=== PATIENT | female | born 1960 | race Caucasian/White ===

== ENCOUNTER 2023-09-03 07:58 | Emergency (ER) | payer OTHER, SELFPAY ==
[2023-09-03 08:00] VITALS: BP 156/83
--- NOTE | 2023-09-03 08:21 | ED.GENMED ---
History of Present Illness
General
Chief Complaint: Skin Problem
Source: patient
Exam Limitations: none
Time Seen by Provider: 09/03/23 08:15
Travel History
Have you had any contact with someone who has COVID-19?: No
Do you have any symptoms of coronavirus? Fever > 100 degrees, chills, cough, shortness of breath, sore throat, loss of taste or smell, muscle aches, or headache?: No
History of Present Illness
History of Present Illness:
62-year-old female complaining of bilateral leg pain swelling and rash for months. She last saw her physician 4 months ago. When asked why she has not followed up she stated 'he did not do anything for '. She denies fever chills shortness of
breath or chest pain. Mostly complaining of the painful rash leg swelling tightness in her lower extremities. Also complaining of bilateral knee pain.
Past History
Past History
ED Past Medical History: HTN, Psychiatric (anxiety) and Other (gout)
ED Past Surgical History: Gynecological, Orthopedic and Other (Multiple eye surgeries)
Social History
Tobacco: Non-smoker
Alcohol: None
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
Review of Systems
Review of Systems
All Other Systems: Not applicable
Constitutional: Denies fever
Respiratory: Reports no symptoms
Cardiac: Reports no symptoms
Phy Exam
Physical Exam
Physical Exam:
GENERAL: Alert and oriented in no apparent distress. Able to bear weight and ambulate fully to the bed
CARDIAC: Regular rate and rhythm without any obvious murmurs.
LUNGS: Clear breath sounds,normal
ABDOMEN: Soft, without focal tenderness or distention. Elevated BMI
NEUROLOGICAL: Alert and oriented , grossly non-focal
SKIN: Warm and dry, chronic erythematous changes to both lower extremities. Questionable very minimal surrounding cellulitis bilaterally.
MUSCULOSKELETAL: Relatively tight lower extremities with mild pitting. Good distal pulses and color. No cord. No obvious knee effusions. No ankle effusions
PSYCH: Normal and appropriate interaction.
Course
Orders/Labs/Results
Orders:
Orders
09/03/23 08:20
IV Insert/Care/Rem.- Treatment PRN
US Periph Venous LOWER Ext Patrick Urgent
Comment:
Reason For Exam: Bilateral leg swelling
09/03/23 08:21
CR Chest - 2 Views Urgent
Comment:
Reason For Exam: Bilateral leg swelling
09/03/23 10:02
Basic Metabolic Panel Urgent
Complete Blood Count/With Diff Urgent
NT-proBNP Urgent
09/03/23 12:27
Amlodipine [Norvasc] 5 mg PO NOW STA
Doxycycline [Vibramycin] 100 mg PO NOW STA
Abnormal Lab Results
09/03/23
10:02
RBC 4.12 L 10^6/uL
(4.20-5.40)
MCHC 31.6 L g/dL
(33.0-37.0)
BUN 26 H mg/dl
(7-17)
Creatinine 1.5 H mg/dL
(0.6-1.0)
Calcium 11.5 H mg/dl
(8.4-10.2)
09/03/23 10:02
09/03/23 10:02
Vital Signs
Initial and Last Documented VS:
Initial Vital Signs
Temp Pulse Resp BP Pulse Ox
98.3 F 60 16 156/83 95
09/03/23 08:00 09/03/23 08:00 09/03/23 08:00 09/03/23 08:00 09/03/23 08:00
Last Documented Vital Signs
Temp Pulse Resp BP Pulse Ox
98.3 F 69 20 185/78 98
09/03/23 08:00 09/03/23 11:08 09/03/23 11:08 09/03/23 11:08 09/03/23 11:08
MDM/Problems Addressed
Differential Diagnosis Includes:
Differential for ongoing leg swelling bilaterally and some erythema would be chronic edema, kidney disease, bilateral DVT. Unlikely. Chronic venous issues. Doubt CHF. As for the rash. Most of this is a chronic dermatitis. However consider mild
secondary cellulitis
*Radiology
Radiology exam reviewed: radiology read reviewed (Negative ultrasound. Negative chest x-ray.)
*Pulse Oximetry
Patient hypoxic: no
*Critical Care Note
Total Time (30-74mins, 75-104mins- exclusive of procedures): Not Applicable
Data Reviewed
Review of Other/Old Records Reveals: Labs, Records and Testing
Update Note
Update Note:
No serious issues found. Possible cellulitis. Will cover with antibiotics. Patient requesting her blood pressure medication
ED Attending Note
-
Portions of this chart may have been created with voice recognition software.� Occasional wrong word or��sound alike� substitutions may have occurred due to the inherent limitations of voice recognition software.
Discharge Plan
Departure
Patient Disposition: Home (Routine Discharge)
Date of Disposition: 09/03/23
Time of Disposition: 12:29
Patient with high blood pressure during this ER visit?: Yes
Discharge Problem:
Bilateral lower extremity dermatitis, Bilateral lower extremity edema, Possible cellulitis, Mild renal insufficiency
Instructions: Skin Rash (DC), Cellulitis (Skin Infection), Adult (DC), BLOOD PRESSURE
Prescriptions:
New
doxycycline hyclate 100 mg capsule
100 mg PO BID 10 Days Qty: 20 0RF
No Action
Methadone
177 mg PO DAILY
doxycycline hyclate 100 MG capsule
100 mg PO Q12 7 Days Qty: 14 0RF
lidocaine [Aspercreme (lidocaine)] 1 PATCH adhesive patch,medicated
1 patch topical DAILY Qty: 30 0RF
cyanocobalamin (vitamin B-12) 1,000 MCG tablet
1,000 mcg PO DAILY Qty: 30 0RF
amlodipine 5 MG tablet
5 mg PO DAILY Qty: 30 0RF
amoxicillin-pot clavulanate 1 TABLET tablet
1 tab PO Q12 7 Days Qty: 14 0RF
cholecalciferol (vitamin D3) 2,000 UNIT tablet
2,000 unit PO DAILY Qty: 30 0RF
Referrals:
Brandyn Sharma DO [Family Provider] - Follow up in 2-3 days
Activity Restrictions/Additional Instructions:
Follow-up with kidney function with your primary physician. I would only take Tylenol for pain. Do not take Advil Motrin or Aleve
Interventions
Interventions:
*Risk Screen - Suicide Last Done: 09/03/23 08:02
*General Assessment Last Done: 09/03/23 08:43
*Neglect/Abuse Screening Last Done: 09/03/23 08:43
ED- Fall Risk Assessment Last Done: 09/03/23 08:45
*ED COVID-19 Vaccine History Last Done: 09/03/23 08:02
Discharge Date and Time
Print Language: LIBYAN
[2023-09-03 08:42] VITALS: BMI 39.2
[2023-09-03 11:08] VITALS: BP 185/78
[2023-09-03 11:17] LABS: % Basophils 0.3 % (0-2); % Eosinophils 3.9 % (0-6); % Immature Granulocytes 0.3 % (0-0.5); % Lymphocytes 29.7 % (20.5-51.1); % Monocytes 9.1 % (1.7-9.3); % Neutrophils 56.7 % (42.2-75.2); Absolute Eosinophils 0.3 10^3/uL (0-0.7); Absolute Monocytes 0.6 10^3/uL (0.1-0.6); Absolute Neutrophils 3.8 10^3/uL (1.4-6.5); Mean Corp Hgb Conc. 31.6 g/dL (33.0-37.0); Mean Corpuscular Hgb 29.1 pg (27.0-31.0); Mean Corpuscular Volume 92.2 fL (81.0-99.0); Mean Platelet Volume 10.2 fL (7.4-10.4); Nucleated Red Blood Cells % 0 %; Platelet Count 157 10^3/uL (130-400); Red Blood Cell Count 4.12 10^6/uL (4.20-5.40); Red Cell Dist. Width 12.6 % (11.5-14.5); White Blood Cell Count 6.7 10^3/uL (4.8-10.8)
[2023-09-03 11:45] LABS: Blood Urea Nitrogen 26 mg/dl (7-17); Estimated Creatinine Clearance 41 ml/min; Glucose 97 mg/dl (70-99); eGFR 38.67
[2023-09-03 11:46] LABS: Calcium 11.5 mg/dl (8.4-10.2); Carbon Dioxide 30 mmol/L (22-30); Chloride 104 mmol/L (98-107); NT-proBNP 377 pg/ml; Potassium 4.3 mmol/L (3.5-5.1); Sodium 137 mmol/L (135-145)
[2023-09-03] MEDS: VIBRAMYCIN 100 MG PO (12:36)
[2023-09-03] MEDS: NORVASC 5 MG PO (12:36)
[2023-09-03] MEDS: TYLENOL 650 MG PO (12:38)
[2023-09-03 13:54] VITALS: BP 150/72
== END 2023-09-03 13:57 | disposition home or self-care (01) ==
LOC: EMR 07:58
PROVIDERS: EMERGENCY PHYSICIAN Emergency Medicine; FAMILY PHYSICIAN Family Medicine
DX: L30.9 Dermatitis, unspecified (principal); R22.43 Localized swelling, mass and lump, lower limb, bilateral; I10 Essential (primary) hypertension
CPT/HCPCS: 99285; 71046; 80048; 83880; 85025; 93970

== ENCOUNTER → 2023-12-08 12:51 | Outpatient (REF) | payer OTHER, SELFPAY | LOC: WOUND 12:51 | PROVIDERS: ATTENDING PHYSICIAN Surgery; FAMILY PHYSICIAN Family Medicine | DX: I87.2 Venous insufficiency (chronic) (peripheral) (principal); N18.30 Chronic kidney disease, stage 3 unspecified; I12.9 Hypertensive chronic kidney disease with stage 1 through stage 4 chronic kidney disease, or unspecified chronic kidney disease | CPT/HCPCS: 99203 ==

== ENCOUNTER → 2023-12-25 13:49 | Outpatient (REF) | payer OTHER, SELFPAY | LOC: HWRAD 13:49 | PROVIDERS: ATTENDING PHYSICIAN Internal Medicine; FAMILY PHYSICIAN Family Medicine | DX: R79.89 Other specified abnormal findings of blood chemistry (principal) | CPT/HCPCS: 76770 ==

== ENCOUNTER → 2024-02-02 15:40 | Outpatient (REF) | payer OTHER, SELFPAY | LOC: HWWDC 15:40 | PROVIDERS: ATTENDING PHYSICIAN Physician Assistant | DX: Z12.31 Encounter for screening mammogram for malignant neoplasm of breast (principal) | CPT/HCPCS: 77063; 77067 ==

== ENCOUNTER 2024-06-27 12:33 | Emergency (ER) | payer OTHER, SELFPAY ==
[2024-06-27 12:35] VITALS: BP 172/94
--- NOTE | 2024-06-27 15:51 | EDRN ---
Kael RALPH in room w/ pt.
--- NOTE | 2024-06-27 15:51 | EDRN ---
Pt states she arrives for cellulitis. Pt states bilateral legs are now weeping. Pt has had this before. Pt states that this episode started 3 months ago. Pt has not been treated for this. Pt has had 2 episodes prior to this. The bilateral legs are
also in pain. Pt has not had any treatment or antibiotics for this. Bilateral lower legs are red w/ some open area on each leg though no drainage at this time.
[2024-06-27 16:45] VITALS: BP 188/76
[2024-06-27 17:00] VITALS: BP 175/76; BMI 32.7
[2024-06-27 17:07] LABS: % Basophils 0.1 % (0-2); % Eosinophils 2.7 % (0-6); % Immature Granulocytes 0.4 % (0-0.5); % Monocytes 7.7 % (1.7-9.3); % Neutrophils 67.1 % (42.2-75.2); Absolute Eosinophils 0.2 10^3/uL (0-0.7); Absolute Lymphocytes 1.5 10^3/uL (1.2-3.4); Absolute Monocytes 0.5 10^3/uL (0.1-0.6); Absolute Neutrophils 4.5 10^3/uL (1.4-6.5); Hematocrit 36.3 % (37.0-47.0); Hemoglobin 11.5 g/dL (12.0-16.0); Mean Corp Hgb Conc. 31.7 g/dL (33.0-37.0); Mean Corpuscular Hgb 29.3 pg (27.0-31.0); Mean Corpuscular Volume 92.4 fL (81.0-99.0); Mean Platelet Volume 9.8 fL (7.4-10.4); Nucleated Red Blood Cells % 0 %; Platelet Count 146 10^3/uL (130-400); Red Blood Cell Count 3.93 10^6/uL (4.20-5.40); Red Cell Dist. Width 12.6 % (11.5-14.5); White Blood Cell Count 6.7 10^3/uL (4.8-10.8)
[2024-06-27 17:13] LABS: ALT (SGPT) 19 U/L (0-35); AST (SGOT) 22 U/L (14-36); Albumin 3.7 g/dl (3.5-5.0); Alkaline Phosphatase 110 U/L (38-126); Blood Urea Nitrogen 28 mg/dl (7-17); Carbon Dioxide 29 mmol/L (22-30); Chloride 107 mmol/L (98-107); Glucose 99 mg/dl (70-99); Potassium 4.8 mmol/L (3.5-5.1); Sodium 140 mmol/L (135-145); Total Bilirubin 0.7 mg/dl (0.2-1.3); Total Protein 7.1 g/dl (6.3-8.2); eGFR 45.63
[2024-06-27 17:21] LABS: NT-proBNP 391 pg/ml
[2024-06-27 17:45] LABS: TSH 2.21 uIU/ml (0.47-4.68)
[2024-06-27 18:00] VITALS: BP 190/78
--- NOTE | 2024-06-27 18:10 | ED.GENMED ---
History of Present Illness
General
Chief Complaint: Skin Problem
Source: patient and family
Exam Limitations: none
Time Seen by Provider: 06/27/24 14:28
Nursing documentation reviewed up to this point in time: agreed with
History of Present Illness
History of Present Illness:
63-year-old female past medical history of GERD, chronic leg swelling presenting to the emergency department with concerns of ongoing redness and swelling to her legs over the past year has been treated with antibiotics multiple times with concerns
of infection. Has noticed increasing redness and swelling over the past month or so. Last antibiotic was 3 months ago. Has had some mild shortness of breath has been developing over the past few months. Denies taking any water pills denies any
chest pain nausea vomiting fever.
Past History
Past History
ED Past Medical History: HTN, Psychiatric (anxiety) and Other (gout)
ED Past Surgical History: Gynecological, Orthopedic and Other (Multiple eye surgeries)
Social History
Tobacco: Non-smoker
Alcohol: None
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
Review of Systems
Review of Systems
Allergies reviewed?: Yes
All Other Systems: ROS reviewed and negative except as documented in HPI and ROS
Phy Exam
Physical Exam
Physical Exam:
GENERAL: Alert , in no apparent distress
EYE: pupils equal and reactive
NECK: Supple, no significant adenopathy.
ENT: o/p clr, mmm.
CARDIAC: Regular rate and rhythm .
LUNGS: Clear breath sounds bilaterally, no acute respiratory distress, no wheezes/rales/rhonchi
ABDOMEN: Soft, without focal tenderness, no r/g, no cvat
NEUROLOGICAL: Alert and oriented, no focal neuro deficits
SKIN: Warm and dry, skin intact.
MUSCULOSKELETAL: With hardening to the skin of the shins bilaterally with redness and warmth symmetrical bilaterally. Some excoriation bilaterally. +2 pitting edema from the mid thighs distally. Significant skin change, well perfused.
PSYCH: Normal and appropriate interaction.
Course
Orders/Labs/Results
Orders:
Orders
06/27/24 16:02
Chest [CR Chest - 2 Views ] Urgent
Comment:
Reason For Exam: sob
06/27/24 16:53
Complete Blood Count/With Diff Urgent
Comprehensive Metabolic Panel Urgent
NT-proBNP Urgent
TSH Urgent
Abnormal Lab Results
06/27/24
16:53
RBC 3.93 L 10^6/uL
(4.20-5.40)
Hgb 11.5 L g/dL
(12.0-16.0)
Hct 36.3 L %
(37.0-47.0)
MCHC 31.7 L g/dL
(33.0-37.0)
BUN 28 H mg/dl
(7-17)
Creatinine 1.3 H mg/dL
(0.6-1.0)
Calcium 12.0 H mg/dl
(8.4-10.2)
06/27/24 16:53
06/27/24 16:53
Vital Signs
Initial and Last Documented VS:
Initial Vital Signs
Temp Pulse Resp BP Pulse Ox
97.8 F 63 16 172/94 100
06/27/24 12:35 06/27/24 12:35 06/27/24 12:35 06/27/24 12:35 06/27/24 12:35
Last Documented Vital Signs
Temp Pulse Resp BP Pulse Ox
97.8 F 64 16 190/78 96
06/27/24 12:35 06/27/24 18:00 06/27/24 18:00 06/27/24 18:00 06/27/24 18:00
MDM/Problems Addressed
MDM/Problems Addressed:
63-year-old female denting to the emergency department today with concerns of worsening swelling redness warmth to the lower extremities bilaterally. Symmetrically bilaterally. Treated multiple times for possible cellulitis. No improvement each
time. On my assessment patient has hardening of her skin bilaterally with redness and warmth that symmetrical bilaterally. Sparing the joints. Seems to be more consistent with venous stasis dermatitis rather than cellulitis especially symptoms
have been going on for multiple months without any systemic symptoms. No white count. Patient is afebrile. Renal function at patient's baseline. Chest x-ray showing some edema. Patient in no distress here blood pressure in the 170s over 90s.
She did miss her blood pressure med earlier today. No chest pain or shortness of breath. 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
*Critical Care Note
Total Time (30-74mins, 75-104mins- exclusive of procedures): Not Applicable
ED Attending Note
-
Portions of this chart may have been created with voice recognition software.� Occasional wrong word or��sound alike� substitutions may have occurred due to the inherent limitations of voice recognition software.
Discharge Plan
Departure
Patient Disposition: Home (Routine Discharge)
Date of Disposition: 06/27/24
Time of Disposition: 18:56
Patient with high blood pressure during this ER visit?: Yes
Condition: Good
Covid-19: Not Applicable
Discharge Problem:
Venous stasis dermatitis, CHF (congestive heart failure)
Instructions: Wound Care (DC), BLOOD PRESSURE
Prescriptions:
New
cephalexin 500 mg capsule
500 mg PO QID 7 Days Qty: 28 0RF
No Action
Methadone
177 mg PO DAILY
doxycycline hyclate 100 MG capsule
100 mg PO Q12 7 Days Qty: 14 0RF
lidocaine [Aspercreme (lidocaine)] 1 PATCH adhesive patch,medicated
1 patch topical DAILY Qty: 30 0RF
cyanocobalamin (vitamin B-12) 1,000 MCG tablet
1,000 mcg PO DAILY Qty: 30 0RF
amlodipine 5 MG tablet
5 mg PO DAILY Qty: 30 0RF
amoxicillin-pot clavulanate 1 TABLET tablet
1 tab PO Q12 7 Days Qty: 14 0RF
cholecalciferol (vitamin D3) 2,000 UNIT tablet
2,000 unit PO DAILY Qty: 30 0RF
doxycycline hyclate 100 mg capsule
100 mg PO BID 10 Days Qty: 20 0RF
Referrals:
Winston Zhou MD [Active] - Follow up in 5-7 days
NONE,* [Family Provider] -
Vic Saenz MD [Active] - Follow up in 1 week
Activity Restrictions/Additional Instructions:
You came to the emergency department today with concerns of significant swelling to your lower extremities. This appears to be consistent with venous stasis dermatitis. Please keep your legs elevated use compression stockings and follow-up closely
with cardiology as well as vascular for further assessment of this. Please also continue taking Lasix please take 40 mg daily until cardiology follow-up. You can also take Keflex in case there is a secondary infection. Return for any worsening,
new or concerning symptoms.
Interventions
Interventions:
*Risk Screen - Suicide Last Done: 06/27/24 12:35
*General Assessment Last Done: 06/27/24 17:00
*Neglect/Abuse Screening Last Done: 06/27/24 12:35
ED- Fall Risk Assessment Last Done: 06/27/24 17:00
*ED COVID-19 Vaccine History Last Done: 06/27/24 17:00
ED-Skin Assessment Last Done: 06/27/24 17:00
Discharge Date and Time
Print Language: KINYARWANDA
[2024-06-27 18:23] VITALS: BP 190/78
--- NOTE | 2024-06-27 18:25 | EDRN ---
This RN TT'd Kael RALPH about pt wishing to drink and no response as of yet.
--- NOTE | 2024-06-27 18:55 | EDRN ---
Kael Rodríguez PA in to see pt.
--- NOTE | 2024-06-27 19:09 | WOUNDNOTE ---
WOUND/SKIN care note: Pt identified by name and .
R lower lateral leg
R lower anterior leg
R lower medial leg
L Lower lateral leg
L lower anterior leg
L lower medial leg
== END 2024-06-27 19:22 | disposition home or self-care (01) ==
LOC: EMR 12:33
PROVIDERS: Physician Assistant; EMERGENCY PHYSICIAN Emergency Medicine
DX: I87.2 Venous insufficiency (chronic) (peripheral) (principal); I11.0 Hypertensive heart disease with heart failure; I50.9 Heart failure, unspecified; K21.9 Gastro-esophageal reflux disease without esophagitis
CPT/HCPCS: 99284; 71046; 80053; 83880; 84443; 85025

== ENCOUNTER → 2024-10-11 13:30 | Outpatient (REF) | payer OTHER, SELFPAY | LOC: RAD 13:30 | PROVIDERS: ATTENDING PHYSICIAN Internal Medicine | DX: S81.809A Unspecified open wound, unspecified lower leg, initial encounter (principal); I87.2 Venous insufficiency (chronic) (peripheral) | CPT/HCPCS: 93925; 93970 ==

== ENCOUNTER → 2024-11-02 11:03 | Outpatient (REF) | payer OTHER, SELFPAY | LOC: RAD 11:03 | PROVIDERS: ATTENDING PHYSICIAN Surgery Vascular Surgery | DX: M79.89 Other specified soft tissue disorders (principal) | CPT/HCPCS: 93970 ==